=== PATIENT | female | born 2000 | race Caucasian/White ===

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

== ENCOUNTER 2022-07-28 08:22 | Observation (INO) | payer OTHER, SELFPAY ==
--- NOTE | 2022-07-28 09:34 | LDADM ---
This patient, Iqra Solis, was admitted to OB Post 116 on 07/28/22 at 08:22. Plans for labor, pain management and were discussed with patient. Patient/family oriented to hospital policies and general routines including ID bracelet, bed and alarms, visiting hours, pain management, procedures, bathroom and other care routines, personal items, smoking policy, room service/diet and guest tray routines, infant security routines, and visiting hours. Patient/Family are encouraged to report perceived risks to care and to ask questions if they do not understand what they are told or what they should do. See OBIX for further documentation.
--- NOTE | 2022-07-28 10:05 | PC.NURSE ---
Patient admitted for observation with complaints of nausea and vomiting since 07/27/22 2100. Patient states she last vomited at 0700 today. FHT doppled and found at 150 at 0900. No contractions felt by patient, palpated, or picked up by toco. Patient given a liter of water, clear soda, and saltine crackers with instructions to PO hydrate and attempt to eat crackers. Patient able to eat and drink without N/V. Patient states she does not want an IV started and feels well enough to go home. Spoke on the phone with Dr. Felder at 0937. Verbal orders given for discharge as well as 4mg Zofran ODT PRN x20. Patient verbalizes understanding of discharge instructions and has no questions at this time.
--- NOTE | 2022-08-01 08:01 | PM.OBTRLD ---
OB - Triage/Final Diagnosis Visit Information Comments/Additional reasons for admission: I have assessed the risk for this patient, Iqra Danielle Solis, and determined that she would benefit from observation care. Final Diagnosis (1) Nausea & vomiting: Code(s): R11.2 - Nausea with vomiting, unspecified Status: Acute
== END 2022-07-28 09:55 | disposition home or self-care (01) ==
PROVIDERS: Admitting Provider Obstetrics & Gynecology; Visit Provider Obstetrics & Gynecology
DX: O26.92 Pregnancy related conditions, unspecified, second trimester (principal); Z3A.21 21 weeks gestation of pregnancy
CPT/HCPCS: G0378; G0379

== ENCOUNTER 2022-12-02 07:01 | Inpatient (IN) | payer OTHER, MEDICAID, SELFPAY ==
[2022-12-02] VITALS (123 sets, daily range): BP systolic 65–146; BP diastolic 46–107; PULSE 60–257; RESP 16; TEMP 36.6–37.3; O2SAT 89–100; BMI 28.1
[2022-12-02 09:31] LABS: Basophils Absolute Auto 0.1 K/mm3 (0.0-0.1); Basophils Percent Auto 0.5 % (0.2-1.2); Eosinophils Absolute Auto 0.1 K/mm3 (0-0.3); Eosinophils Percent Auto 0.5 % (0-4.4); Hematocrit 40.2 % (37.0-47.0); Hemoglobin 13.5 g/dL (12.0-15.0); Immature Granulocyte Absolute 0.12 K/mm3 (0.00-0.031); Lymphocytes Absolute Auto 1.81 K/mm3 (0.9-3.2); Lymphocytes Percent Auto 15.2 % (18.3-44.2); Mean Corpuscular HGB Conc 33.6 g/dl (32-36); Mean Corpuscular Hemoglobin 30.8 pg (26-34); Mean Corpuscular Volume 91.8 fl (80-100); Mean Platelet Volume 9.8 fl (7.4-10.4); Monocytes Absolute Auto 0.6 K/mm3 (0.1-0.6); Monocytes Percent Auto 5.3 % (2.6-8.5); Neutrophils Absolute Auto 9.2 K/mm3 (1.3-6.7); Neutrophils Percent Auto 77.5 % (45.5-73.1); Platelet Count Result 262 k/mm3 (150-375); Red Blood Count 4.38 M/mm3 (4.2-5.4); Red Cell Distribution Width 13.2 % (11.5-14.5); White Blood Count 11.9 K/mm3 (4.5-10.0)
[2022-12-02] MEDS: LACTATED RINGERS 1,000 ML 125 ML IV CONT ×2 (09:38→13:53)
[2022-12-02] MEDS: fentaNYL CITRATE INJ (*CRX) 100 MCG/2 ML VIAL 50 MCG IV PUSH ×2 (09:41→11:58)
--- NOTE | 2022-12-02 10:01 | LDADM ---
This patient, Iqra Solis, was admitted to Labor/Delivery/Recovery 105 on 12/02/22 at 07:01. Plans for labor, pain management and were discussed with patient. Patient/family oriented to hospital policies and general routines including ID bracelet, bed and alarms, visiting hours, pain management, procedures, bathroom and other care routines, personal items, smoking policy, room service/diet and guest tray routines, security routines, and visiting hours. Patient/Family are encouraged to report perceived risks to care and to ask questions if they do not understand what they are told or what they should do. See OBIX for further documentation.
--- NOTE | 2022-12-02 12:02 | WPDHPUPDATE1 ---
History and Physical Update Update Date/Time: 12/02/22 12:02 21-year-old 1 at 39 weeks who presented in labor. Artificial rupture of membranes was performed. She is 3-4, 80%, -2 clear fluid was returned, reassuring heart tones, expected management. History and Physical has been reviewed, including an updated exam of the patient. There are NO changes in the patient's condition. Risks, benefits, and alternatives have been discussed and questions answered. Patient agrees to proceed with procedure.
[2022-12-02] MEDS: fentaNYL CITRATE INJ (*CRX) 100 MCG/2 ML VIAL IV PUSH (13:05)
--- NOTE | 2022-12-02 14:03 | WPDANESEPP ---
Anes - Eval Pre Procedure Procedure: labor epidural Date/Time: 12/02/22 14:03 Preop Diagnosis: labor pain Pre Op Diagnosis: Labor Patient Data Age: 21 Gender: F Height: 1.68 m Weight: 79.1 kg Last Vital Signs Temp 36.6 C 12/02/22 13:00 Pulse 72 12/02/22 13:46 BP 124/71 12/02/22 13:46 Allergies Allergy/AdvReac Type Severity Reaction Status Date / Time No Known Allergies Allergy Verified 11/06/22 12:13 Home Medications Medication Instructions Recorded Confirmed Type ferrous sulfate 325 mg (65 mg 325 mg PO DAILY 11/06/22 12/02/22 History iron) tablet (Feosol) vits no.126-ferrous fum 1 tablet PO DAILY 11/06/22 12/02/22 History 28 mg iron-folic acid 800 mcg tablet (Classic ) Laboratory Tests 12/02/22 09:13 WBC 11.9 H K/mm3 (4.5-10.0) RBC 4.38 M/mm3 (4.2-5.4) Hgb 13.5 g/dL (12.0-15.0) Hct 40.2 % (37.0-47.0) MCV 91.8 fl (80-100) MCH 30.8 pg (26-34) MCHC 33.6 g/dl (32-36) RDW 13.2 % (11.5-14.5) Plt Count 262 k/mm3 (150-375) MPV 9.8 fl (7.4-10.4) Immature Gran % (Auto) 1.0 H % (0-0.5) Neut % (Auto) 77.5 H % (45.5-73.1) Lymph % (Auto) 15.2 L % (18.3-44.2) [place] % (Auto) 5.3 % (2.6-8.5) Eos % (Auto) 0.5 % (0-4.4) Baso % (Auto) 0.5 % (0.2-1.2) Lymph # (Auto) 1.81 K/mm3 (0.9-3.2) Emanuel # (Auto) 0.6 K/mm3 (0.1-0.6) Eos # (Auto) 0.1 K/mm3 (0-0.3) Baso # (Auto) 0.1 K/mm3 (0.0-0.1) Abs Immat Gran (auto) 0.12 H K/mm3 (0.00-0.031) Absolute Neuts (auto) 9.2 H K/mm3 (1.3-6.7) Absolute Nucleated RBC 0.0 K/mm3 (0.0-0.012) Nucleated RBC % 0.0 % (0.0-0.2) RPR Pending Blood Type O Positive Antibody Screen Negative Patient hx anesthesia problems: none Family hx anesthesia problems: none Results Review: All pre-operative results and documents have been reviewed as part of the pre-operative evaluation. [facility], [facility] Family History Family History Grandparent Pulmonary fibrosis Social History Social History Smoking status: Former smoker Tobacco type: e-cigarettes/vaping Substance use: never Lack of Transportation: No Lack of Food: Never True Current Housing: I Have Housing Concerned About Future Housing: No Difficulty Paying Gas/Electric Bills: No Difficulty Paying for Meds: No Currently Unemployed: No Education: High School Diploma/GED Difficulty w/ Childcare or Family Care: No Spiritual care concerns: No Exam Day of Procedure 12/02/22 14:03 Patient weight: overweight Heart: regular rate and rhythm Airway: Mallampati scale class II Neurological: alert and oriented
[2022-12-02] MEDS: SODIUM CHLORIDE 0.9% IV 300 ML 600 ML I-UTERINE (15:27)
[2022-12-02] MEDS: OXYTOCIN 30 UNITS/NS 500 ML 30 UNITS/500 ML BAG 999 UNITS IV CONT (18:43)
--- NOTE | 2022-12-02 19:03 | PM.OBPRVD ---
OB - Delivery Note Procedure Delivery date: 12/02/22 Procedure: Intrapartal Events: Decelerations Delivery augmentation: Rupture of Membranes Delivery monitor: External FHT and External Uterine Route of delivery: Laceration Description: Perineal - 2nd Degree Delivery repair: vicryl Quantitative Blood Loss (ml): 110 Anesthesia type: Epidural Disposition: Floor Narrative: With adequate expulsive efforts by the mother, the baby's head was delivered OA. The baby's anterior shoulder was delivered under the pubic symphysis without difficulty. The posterior shoulder and the rest of the baby delivered without difficulty. The infant was placed on the mothers chest and suctioned and stimulated. The cord was clamped and cut after 30 seconds. Mother and baby both stable. [place] Baby Date of : 12/02/22 Time of : 18:39 Weeks of gestation at delivery: 39 gender: Female presentation: vertex Placenta delivery description: Spontaneous Cord Vessel Description: 3 Vessels and Delayed Cord Clamping score one minute: 9 score five minutes: 9
[2022-12-02] MEDS: OXYTOCIN 30 UNITS/NS 500 ML 30 UNITS/500 ML BAG 125 UNITS IV CONT (19:10)
--- NOTE | 2022-12-02 21:48 | OBPPTRN ---
Addendum entered by Freda Washington RN 12/03/22 00:22: Patient transferred to post room #291 via (wheelchair). Support person present. Oriented to unit, room, information board, rooming in, admission packet and security measures. Patient verbalizes understanding. Original Note: Patient transferred to post room # via ( ). Support person present. Oriented to unit, room, information board, rooming in, admission packet and security measures. Patient verbalizes understanding.
[2022-12-02] MEDS: ACETAMINOPHEN 325 MG TABLET 650 MG PO (23:39)
[2022-12-03] MEDS: IBUPROFEN 600 MG TABLET PO ×4 (00:50→23:15)
[2022-12-03 04:00] VITALS: BP 102/55; PULSE 82; RESP 18; TEMP 36.6; O2SAT 100
[2022-12-03 04:24] LABS: Hematocrit 35.6 % (37.0-47.0); Hemoglobin 11.8 g/dL (12.0-15.0)
[2022-12-03] MEDS: ACETAMINOPHEN 325 MG TABLET 650 MG PO (05:18)
[2022-12-03] MEDS: HYDROcodone/acetaminophen (*CRX) 5-325 MG TABLET 1 TAB PO ×4 (06:30→23:17)
[2022-12-03 06:32] VITALS: BP 105/61; PULSE 82; RESP 15; TEMP 37.4
[2022-12-03] MEDS: DOCUSATE SODIUM 100 MG CAPSULE PO ×2 (08:01→16:58)
[2022-12-03] MEDS: MULTIVIT/MIN/PREN/FOL AC/IRON TABLET 1 TAB PO (08:01)
--- NOTE | 2022-12-03 08:41 | P.PNOB_ITS ---
OB - PN: Subj Subjective Date/time seen: 12/03/22 08:41 Patient comments: no complaints, pain well controlled, incisional pain, tolerating diet and flatus present OB - PN: Obj Data Labs 12/03/22 03:55 Labs: Laboratory Results - last 24 hr 12/02/22 12/03/22 09:13 03:55 WBC 11.9 H RBC 4.38 Hgb 13.5 11.8 L Hct 40.2 35.6 L MCV 91.8 MCH 30.8 MCHC 33.6 RDW 13.2 Plt Count 262 MPV 9.8 Immature Gran % (Auto) 1.0 H Neut % (Auto) 77.5 H Lymph % (Auto) 15.2 L [place] % (Auto) 5.3 Eos % (Auto) 0.5 Baso % (Auto) 0.5 Lymph # (Auto) 1.81 [place] # (Auto) 0.6 Eos # (Auto) 0.1 Baso # (Auto) 0.1 Abs Immat Gran (auto) 0.12 H Absolute Neuts (auto) 9.2 H Absolute Nucleated RBC 0.0 Nucleated RBC % 0.0 Blood Type O Positive Antibody Screen Negative OB - PN A/P Plan day: 1 Plan: routine care Comments: No problems, routine care Time Spent With Patient Time: Total time spent is greater than 50% in coordination of care (as documented) at patient's floor/unit and/or counseling patient: Exam Const: General: comfortable, no acute distress and alert Resp: Effort & Inspection: normal respiratory effort Auscultation: no crackles, no rales and no rhonchi Cardio: Rate: regular rate Heart sounds: no click, no murmurs and no rubs GI: Inspection: non-distended GI Palp: No Tenderness to palpation present (GI) Auscultation: normal bowel sounds Other: Incision - CDI Extrem: General: normal to inspection, no pedal edema and no calf tenderness
--- NOTE | 2022-12-03 09:40 | WPDANLDPN2 ---
Anes-Prog Note L&D Date/Time: 12/03/22 09:40 Comfortable throughout: labor and delivery Neuraxial method: epidural Epidural/Spinal procedure site: clean & non-tender Neuro status: Neuro function grossly intact. Cardiovascular status: normal Respiratory status: normal Airway patency: baseline Mental status: baseline Post-Op hydration status: normal Vital Signs: Last Vital Signs Temp 99.4 F 12/03/22 06:32 Pulse 82 12/03/22 06:32 Resp 15 12/03/22 06:32 BP 105/61 12/03/22 06:32 Pulse Ox 100 12/03/22 04:00 O2 Del Method Room Air 12/02/22 22:15 Pain score (VAS): 0 I/O: Intake & Output 12/02/22 12/03/22 12/03/22 23:59 07:59 15:59 Output Total 85 Balance -85 Post-procedural complaints: none Patient feedback: Patient satisfied with anesthetic care.
[2022-12-03 16:50] VITALS: BP 116/61; PULSE 82; RESP 16; TEMP 37; O2SAT 100
[2022-12-03 19:50] VITALS: BP 127/79; PULSE 104; RESP 20; TEMP 36.9
--- NOTE | 2022-12-04 07:36 | P.PNOB_ITS ---
OB - PN: Subj Subjective Date/time seen: 12/04/22 07:36 Patient comments: no complaints and pain well controlled baby status: doing well [place] feeding status: breast and bottle feeding OB - PN: Obj Data Labs 12/03/22 03:55 OB - PN A/P Plan day: 2 Plan: routine care and discharge home Time Spent With Patient Time: Total time spent is greater than 50% in coordination of care (as documented) at patient's floor/unit and/or counseling patient: Time with patient: less than 15 minutes Exam Narrative: NAD abdomen soft, nontender, fundus firm below the umbilicus Extremities nontender, 1+ edema
--- NOTE | 2022-12-04 07:38 | P.DS_ITS ---
DS: Admitting Diagnosis Discharge Date 12/04/22 Admitting Diagnosis labor at term DS: Discharge Diagnosis Discharge Diagnosis (1) , delivered: Code(s): O80 - Encounter for full-term uncomplicated delivery Status: Acute OB - DS: Summary Hospital Course Hospital Course: Iqra was admitted in labor at term. She proceeded to have an uncomplicated vaginal delivery and course. She was discharged home in stable condition on PPD 2. OB Procedures : Ultrasound OB Procedures Intrapartum: Spontaneous Vag Delivery OB Procedures: : None Peripartum Data Infant Delivery Method: Natural Vaginal Laceration Description: Perineal - 2nd Degree complications: none Status at Discharge Functional status at discharge: independent ambulation Time Spent with Patient Time attestation: Total time spent providing and/or coordinating discharge services: Exam Narrative: NAD abdomen soft, appropriately tender Ext non tender, 1+ edema Discharge Plan Discharge Attending physician on discharge: Ebony Felder Discharging Clinician: Ebony Felder Anticipated Discharge Date/Time: 12/04/22 07:37 Patient Disposition: Home, Self-Care Activity: pelvic rest Diet: regular Patient Instructions: Antibiotic Form, How to Stop Smoking (DC) Stand Alone Forms: General Discharge Information Follow-up/Referrals: Ebony Felder MD [Physician] - Discharge Medications: Continued ferrous sulfate [Feosol] 325 mg (65 mg iron) Tablet 325 mg PO DAILY Classic 28 mg iron- 800 mcg Tablet 1 tablet PO DAILY Date of admission: 12/02/22 07:01 Primary Care Provider: PHYSICIAN,[employer] Admitting Provider: Ebony Felder Attending physician on admission: Ebony Felder Condition: Stable
[2022-12-04 08:15] VITALS: BP 128/66; PULSE 82; RESP 18; TEMP 36.4; O2SAT 98
[2022-12-04] MEDS: MULTIVIT/MIN/PREN/FOL AC/IRON TABLET 1 TAB PO (09:00)
[2022-12-04] MEDS: IBUPROFEN 600 MG TABLET PO (09:00)
[2022-12-04] MEDS: DOCUSATE SODIUM 100 MG CAPSULE PO (09:01)
[2022-12-04 12:36] LABS: Rapid Plasma Reagin Non-Reactive (NonReactive)
--- NOTE | 2022-12-04 15:08 | PC.NURSE ---
[id number] Introductions were made, then consulted with patient to assess needs related to . Mother led the conversation with her?plans to feed?her infant and the?experience so far. Mother works well with her with encouragement and education. Encouraged understanding of the benefits of skin to skin (demonstrating unwrapping and placing upright on her chest), stimulating with massage touch, changing positions to encourage wakefulness, how to watch for early feeding cues, responsive feeding, feeding on demand (aiming for 8-12 times in 24 hours, about every 2-3 hours), milk production, building/maintaining a milk supply, duration of feeding, signs of adequate intake/output and how to record on the feeding sheet. Reviewed positioning and ear, shoulder, hip alignment, supporting the breast to facilitate a deep latch, asymmetrical latch (off-center), leading with the chin with a big, open, wide gape and body close to mother. Infant latched optimally to the left breast in football position. Education given to mother of how to visualize suck/swallow ratios and listen for drinking at the breast. was able to maintain latch without discomfort to mother. Nipple care reviewed with optimal latch and good positioning. Reminded parents to use good handwashing technique to prevent infection. Mother is feeding appropriately for growth of infant and understands stimulating to eat if needed. We discussed protecting the milk supply with and if infant receives a formula bottle, then mother stimulates with pumping. Reviewed the benefits and risks of exclusively versus a combination feeding. Infant has had appropriate feedings in the last 24 hours meets the outcomes for weight, output and jaundice at this time. Mother states she is confident to continue effectively her infant at home. Reinforced understanding of milk production, transition of milk, signs of adequate intake, transition of stool, prevention/relief of engorgement, plugged ducts, mastitis, responsive watching for feeding cues, the different methods of stimulating to breastfeed 2-3 hours after the start of the last feeding, community resources, medication information reviewed per [employer], risks of smoking/vaping with encouragement for decreasing or cessation and when to call a provider using the resource of the mom and baby guide. Parents voiced understanding of the education shared.
[2022-12-05 10:23] VITALS: BP 117/71; PULSE 76; RESP 18; TEMP 36.9; O2SAT 100
== END 2022-12-04 10:50 | disposition home or self-care (01) | DRG 807 ==
LOC: ANHLDR 10:35 → ANHOB2 22:01
PROVIDERS: Obstetrics & Gynecology; Admitting Provider Obstetrics & Gynecology; Visit Provider Obstetrics & Gynecology
DX: O77.0 Labor and delivery complicated by meconium in amniotic fluid (principal); Z37.0 Single live birth; Z3A.39 39 weeks gestation of pregnancy; O70.1 Second degree perineal laceration during delivery; O36.8330 Maternal care for abnormalities of the fetal heart rate or rhythm, third trimester, not applicable or unspecified
CPT/HCPCS: 36415; 85014; 85018; 85025; 86592; 86850; 86900; 86901; A9270; J2590; J2795; J3010; J7030; J7120

== ENCOUNTER 2024-04-25 15:31 | Emergency (ER) | payer OTHER, MEDICAID, SELFPAY ==
[2024-04-25 15:56] VITALS: BP 108/66; PULSE 114; RESP 18; TEMP 37.2; O2SAT 99
--- NOTE | 2024-04-25 16:01 | ED_ITS ---
HPI - URI/Sore Throat General Chief Complaint: Upper Respiratory Infection Stated Complaint: coughing,aches,chills Time Seen by Provider: 04/25/24 16:01 Source: patient Mode of arrival: ambulatory Limitations: no limitations History of Present Illness HPI Narrative: 23-year-old female presents with complaint of cough, congestion, fatigue, body aches, sore throat for the past week. Afebrile. No chest pain or shortness of breath. Taking [id number]-[id number] medications And symptoms not improving. All systems reviewed and negative except as noted above. Related Data Home Medications ?Medication ?Instructions ?Recorded ?Confirmed ?Last Taken ?Type ferrous sulfate 325 mg (65 mg 325 mg PO DAILY 11/06/22 12/02/22 12/01/22 History iron) tablet (Feosol) vits no.126-ferrous fum 1 tablet PO DAILY 11/06/22 12/02/22 12/01/22 History 28 mg iron-folic acid 800 mcg tablet (Classic ) Allergies Allergy/AdvReac Type Severity Reaction Status Date / Time No Known Allergies Allergy Verified 04/25/24 16:15 Review of Systems Review of Systems: CONSTITUTIONAL: Denies fever. Reportschills, or sweats. EYES: Denies visual changes, redness, or discharge. ENT: reports rhinorrhea, congestion, sore throat. Denies otalgia. CARDIOVASCULAR: Denies chest pain, palpitations, or edema. RESPIRATORY: reports cough . Denies dyspnea. GASTROINTESTINAL: Denies abdominal pain, nausea, vomiting, or diarrhea. GENITOURINARY: Denies dysuria or hematuria. SKIN: Denies rash or itching. MUSCULOSKELETAL: Denies back pain, joint pain, or myalgia. NEUROLOGIC: Denies headache, numbness, or weakness. PSYCHIATRIC: Denies anxiety or depression. All other systems reviewed are negative, except as documented in HPI. [facility] Family History Family History Grandparent Pulmonary fibrosis Social History Social History Smoking status: Former smoker Tobacco type: e-cigarettes/vaping Substance use: never Lack of Transportation: No Lack of Food: Never True Current Housing: I Have Housing Concerned About Future Housing: No Difficulty Paying Gas/Electric Bills: No Difficulty Paying for Meds: No Currently Unemployed: No Education: High School Diploma/GED Difficulty w/ Childcare or Family Care: No Spiritual care concerns: No Comments At time of signature, agree with nursing past medical, surgical, social and family history. There is no relevant family history pertinent to the presenting complaint. Exam Narrative: GENERAL: This is a well-nourished, well-developed patient, in no apparent distress. HEAD: normocephalic, atraumatic. EYES: PERRL. Sclera clear/white. Vision is grossly intact. EARS: External ears normal, auditory canals clear and without drainage, TMs normal without perforation. Hearing grossly intact. NOSE: External nose normal with clear nasal drainage, mild congestion THROAT: Mucous membranes moist, mild erythema without swelling or NECK: Neck supple, non-tender without lymphadenopathy, masses or thyromegaly. CARDIOVASCULAR: Regular rate and rhythm without murmurs, gallops, or rubs. RESPIRATORY: Clear to auscultation. Breath sounds equal bilaterally. No wheezes, rales, or rhonchi. SKIN: warm, Dry, intact with no suspicious lesions or rash, good texture and turgor. NEURO: awake, alert, and oriented to person, place and time. There were no obvious focal neurologic abnormalities. EXTREMITIES: No joint tenderness, effusion, or edema noted. Course Course Level of Care: Express Care Visit Vital Signs Vital signs: Vital Signs Temperature 37.2 C 04/25/24 15:56 Pulse Rate 114 H 04/25/24 15:56 Respiratory Rate 18 04/25/24 15:56 Blood Pressure 108/66 04/25/24 15:56 Pulse Oximetry 99 04/25/24 15:56 Oxygen Delivery Room Air 04/25/24 15:56 Temperature 37.2 C 04/25/24 15:56 Pulse Rate 114 H 04/25/24 15:56 Respiratory Rate 18 04/25/24 15:56 Blood Pressure 108/66 04/25/24 15:56 Pulse Oximetry 99 04/25/24 15:56 Oxygen Delivery Room Air 04/25/24 15:56 reviewed MDM - URI/Sore Throat MDM Narrative Medical decision making narrative: patient positive for influenza. Lungs clear to auscultation. Patient well- appearing, nontoxic. Recommend she continue Ffcu-xhy-jiwkvlp medications Patient is aware of diagnosis, understands and agrees to treatment plan. Anticipatory guidance given. Patient agrees to follow-up as directed and is aware of reasons to seek care at the emergency department. Portions of this record may have been created with voice recognition software Differential Diagnosis Differential diagnosis: Likely upper respiratory infection, sinusitis, viral infection, bronchitis, influenza and pharyngitis Discharge Plan Discharge Clinical Impression: Influenza A Patient Disposition: Home, Self-Care Condition: Stable Instructions: Influenza (ED) Additional Instructions: you were positive for influenza today. Influenza is a virus and symptoms may last 10-14 days. Continue taking xwtg-kln-hswbyqe medication to treat her symptoms such as DayQuil NyQuil cold and flu. Drink at least 64 oz water a day. Place cool mist humidifier in bedroom where you sleep. Follow-up with your primary care physician if symptoms are not improving. Patient Language: Urdu Prescriptions: New benzonatate 200 mg capsule 200 mg PO TID PRN (Reason: cough) Qty: 20 0RF methylprednisolone [Medrol (Alan)] 4 mg tablets,dose pack See Rx Instructions PO .COMPLEX Qty: 21 0RF Rx Instructions: orally per package directions No Action ferrous sulfate [Feosol] 325 mg (65 mg iron) Tablet 325 mg PO DAILY Classic 28 mg iron- 800 mcg Tablet 1 tablet PO DAILY Follow-up/Referrals: PHYSICIAN,[facility] [Primary Care Provider] - Time of Disposition: 16:20
[2024-04-25 16:21] LABS: EDCOVIDSCREEN Negative (Negative); EDINFLUASCREEN Positive (Negative); EDINFLUBSCREEN Negative (Negative)
== END 2024-04-25 16:21 | disposition home or self-care (01) ==
PROVIDERS: Emergency Provider Nurse Practitioner Family; Referring Provider Family Medicine
DX: J10.1 Influenza due to other identified influenza virus with other respiratory manifestations (principal); Z87.891 Personal history of nicotine dependence; Z20.822 Contact with and (suspected) exposure to COVID-19
CPT/HCPCS: 87426; 87804; 99213; G0463